=== PATIENT | female | born 1985 | race Caucasian/White ===

== ENCOUNTER 2016-10-05 09:23 | Emergency (ER) | payer MEDICAID, OTHER ==
[~2016-10-05] VITALS: Ht 172.7 cm; Wt 103.4 kg
[~2016-10-05 09:23] MED LIST: IBUP800T23 PO; ORPH100T PO
[2016-10-05 09:26] VITALS: BP 118/79; PULSE 88; RESP 15; TEMP 98.9; O2SAT 100
[2016-10-05] MEDS ORDERED: CLIN1CAP5 PO (09:55)
[2016-10-05] MEDS ORDERED: IBUP-232 PO (09:55)
[2016-10-05] MEDS ORDERED: ULTR50TA5 PO (09:55)
--- NOTE | 2016-10-05 09:55 | PD ---
HPI Chief Complaint: Cold / Flu Symptoms Time Seen by Provider: 09:43 Travel History International Travel<30 days: No Contact w/Intl Traveler<30days: No Traveled to known affect area: No History of Present Illness HPI 31-year-old female complains of toothache, sore throat, coughing congestion. Patient states that the symptoms started several days ago. Patient states the cough is intermittent mildly productive. Patient denies any headache. Patient denies any chest pain or shortness of breath. Patient denies abdominal pain. Patient denies any nausea vomiting diarrhea. Patient denies any fever chills. PFSH Past Medical History Medical History: Denies Significant Hx Diminished Hearing: No Immunizations Current: No Tetanus Vaccination: > 5 Years Influenza Vaccination: No ?: Not LMP: 5 years ago, irregular due to Mirena IUD Past Surgical History Section: Yes (x 3) Gynecologic Surgery: Yes (C-SECT X 3) Social History Alcohol Use: No Tobacco Use: No Substance Use: No Allergies-Medications (Allergen,Severity, Reaction): Coded Allergies: Penicillin (Verified Allergy, Severe, HIVES/DIARRHEA, 10/05/16) Reported Meds & Prescriptions Reported Meds & Active Scripts Active No Active Prescriptions or Reported Medications Review of Systems General / Constitutional: No: Fever Eyes: No: Visual changes HENT: Positive: Sore Throat, No: Headaches Cardiovascular: No: Chest Pain or Discomfort Respiratory: Positive: Cough, No: Shortness of Breath Gastrointestinal: No: Abdominal Pain Genitourinary: No: Dysuria Musculoskeletal: No: Pain Skin: No Rash Neurologic: No: Weakness Psychiatric: No: Depression Endocrine: No: Polydipsia Hematologic/Lymphatic: No: Easy Bruising Physical Exam Narrative GENERAL: Well-nourished, well-developed patient. SKIN: Focused skin assessment warm/dry. HEAD: Normocephalic. EYES: No scleral icterus. No injection or drainage. TM: Clear. Throat: Mild erythematous. Patient has mild soft tissue swelling tenderness right upper gum area. NECK: Supple, trachea midline. No JVD or lymphadenopathy. CARDIOVASCULAR: Regular rate and rhythm without murmurs, gallops, or rubs. RESPIRATORY: Breath sounds equal bilaterally. No accessory muscle use. GASTROINTESTINAL: Abdomen soft, non-tender, nondistended. MUSCULOSKELETAL: No cyanosis, or edema. BACK: Nontender without obvious deformity. No CVA tenderness. Data Data Last Documented VS Vital Signs Date Time Temp Pulse Resp B/P Pulse Ox O2 Delivery O2 Flow Rate FiO2 10/05/16 09:36 16 Room Air 10/05/16 09:26 98.9 88 118/79 100 MDM Medical Decision Making Medical Screen Exam Complete: Yes Emergency Medical Condition: Yes Differential Diagnosis Differential diagnosis including dental pain, dental abscess, angitis, bronchitis, pneumonia. Narrative Course 31-year-old female with right upper gum pain swelling sore throat coughing congestion. Diagnosis Primary Impression: Pharyngitis Qualified Code: J02.9 - Pharyngitis, unspecified etiology Additional Impression: Pain, dental Patient Instructions: General Instructions Additional Instructions: Clindamycin as directed. Take medications as needed for pain. Follow-up with dentist and personal physician. Return if worse. Med/Other Pt SpecificInfo: Prescription(s) given Scripts Tramadol (Ultram)50 Mg Tab50 Mg PO Q6H PRN (PAIN) #20 TAB Ref 0 Prov:Titi Rodríguez MD 10/05/16 Ibuprofen 600 Mg [id number] Mg PO Q8HR PRN (PAIN) #60 TAB Ref 0 Prov:Titi Rodríguez MD 10/05/16 Clindamycin 150 Mg Cap2 Tab PO Q6H #80 CAP Prov:Titi Rodríguez MD 10/05/16 Disposition: 01 DISCHARGE HOME Condition: Stable Titi Rodríguez MD October 05, 2016 09:55
== END 2016-10-05 10:30 | disposition home or self-care (01) ==
LOC: PHEFT 09:23
DX: J02.9 Acute pharyngitis, unspecified (principal); K08.89 Other specified disorders of teeth and supporting structures; R05 Cough
CPT/HCPCS: 99284

== ENCOUNTER 2017-04-25 12:16 | Emergency (ER) | payer MEDICAID ==
[~2017-04-25 12:16] MED LIST changes: +CLIN150C14 PO; +IBUP-232 PO; -IBUP800T23 PO; -ORPH100T PO; +TRAM50 PO
[2017-04-25 12:20] VITALS: BP 145/70; PULSE 82; RESP 18; TEMP 98.1; O2SAT 99
[2017-04-25] MEDS ORDERED: IBUP1TAB7 PO (12:57)
[2017-04-25] MEDS ORDERED: CLIN300C5 PO (12:57)
--- NOTE | 2017-04-25 12:57 | PD ---
HPI Chief Complaint: Oral / Dental Pain or Problem Time Seen by Provider: 12:49 Travel History International Travel<30 days: No Contact w/Intl Traveler<30days: No Traveled to known affect area: No History of Present Illness HPI 32-year-old female here with right upper dental pain 3-4 days. Patient has history of dental abscesses. She has widespread dental decay. No facial swelling. She denies fever or chills. Symptoms severity is mild. No aggravating or alleviating factors. PFSH Past Medical History Medical History: Denies Significant Hx Diminished Hearing: No Immunizations Current: No ?: Not LMP: 5 YEARS AGO, HAS IUD Past Surgical History Surgical History: No Previous Surgery Section: Yes (x 3) Gynecologic Surgery: Yes (C-SECT X 3) Social History Alcohol Use: No Tobacco Use: No Substance Use: No Allergies-Medications (Allergen,Severity, Reaction): Coded Allergies: penicillin G (Verified Allergy, Severe, HIVES/DIARRHEA, 04/25/17) Reported Meds & Prescriptions Reported Meds & Active Scripts Active Ibuprofen 800 Mg Tab 800 Mg PO Q6HR PRN Clindamycin (Clindamycin HCl) 300 Mg Cap 300 Mg PO TID 10 Days Review of Systems Except as stated in HPI: all other systems reviewed are Neg Physical Exam Narrative GENERAL: Alert well-appearing female. SKIN: Warm and dry. HEAD: Normocephalic. EYES: No injection or drainage. Mouth: Right upper premolar decay with surrounding gum erythema NECK: Supple, trachea midline. No lymphadenopathy. CARDIOVASCULAR: Regular rate and rhythm without murmurs, gallops, or rubs. RESPIRATORY: Breath sounds equal bilaterally. No accessory muscle use. Data Data Last Documented VS Vital Signs Date Time Temp Pulse Resp B/P (MAP) Pulse Ox O2 Delivery O2 Flow Rate FiO2 04/25/17 12:20 98.1 82 18 145/70 (95) 99 MDM Medical Decision Making Medical Screen Exam Complete: Yes Emergency Medical Condition: Yes Differential Diagnosis Dental abscess, caries, periodontal disease Narrative Course Patient has widespread dental decay bilateral premolar dental caries with surrounding gum erythema. Patient be put on antibiotics NSAIDs. Diagnosis Primary Impression: Dental infection Referrals: Dentist Scripts Ibuprofen (Ibuprofen) 800 Mg Tab 800 MG PO Q6HR Y for PAIN, #40 TAB 0 Refills Prov: Martha Brown 04/25/17 Clindamycin (Clindamycin) 300 Mg Cap 300 MG PO TID for Infection for 10 Days, CAP 0 Refills Prov: Martha Brown 04/25/17 Disposition: 01 DISCHARGE HOME Condition: Stable Martha Brown Apr 25, 2017 12:57
== END 2017-04-25 13:16 | disposition home or self-care (01) ==
LOC: PHEFT 12:16
DX: K04.7 Periapical abscess without sinus (principal); K02.9 Dental caries, unspecified
CPT/HCPCS: 99283

== ENCOUNTER 2017-05-15 12:14 | Emergency (ER) | payer MEDICAID ==
[~2017-05-15] VITALS: Ht 172.7 cm; Wt 114.1 kg
[~2017-05-15 12:14] MED LIST changes: -CLIN150C14 PO; +CLIN300C5 PO; -IBUP-232 PO; +IBUP1TAB7 PO; -TRAM50 PO
[2017-05-15 12:20] VITALS: BP 127/72; PULSE 98; RESP 16; TEMP 97.9; O2SAT 97
[2017-05-15] MEDS ORDERED: AZIT250T3 PO (13:36)
--- NOTE | 2017-05-15 13:36 | PD ---
HPI Chief Complaint: ENT Complaint Time Seen by Provider: 13:00 Travel History International Travel<30 days: No Contact w/Intl Traveler<30days: No Traveled to known affect area: No History of Present Illness HPI 32-year-old female here with sore throat and fever 2 days. Reports an occasional cough and nasal congestion. Symptom severity is mild. No aggravating or alleviating factors. Her 2 children have similar symptoms. PFSH Past Medical History Medical History: Denies Significant Hx Diminished Hearing: No Immunizations Current: No Tetanus Vaccination: Unknown Influenza Vaccination: No ?: Not Past Surgical History Section: Yes (x 3) Gynecologic Surgery: Yes (C-SECT X 3) Social History Alcohol Use: No Tobacco Use: No Substance Use: No Allergies-Medications (Allergen,Severity, Reaction): Coded Allergies: penicillin G (Verified Allergy, Severe, HIVES/DIARRHEA, 05/15/17) Reported Meds & Prescriptions Reported Meds & Active Scripts Active Ibuprofen 800 Mg Tab 800 Mg PO Q6HR PRN Clindamycin (Clindamycin HCl) 300 Mg Cap 300 Mg PO TID 10 Days Review of Systems Except as stated in HPI: all other systems reviewed are Neg Physical Exam Narrative GENERAL: Alert female well-appearing. SKIN: Warm and dry. HEAD: Normocephalic. EYES: No scleral icterus. No injection or drainage. THROAT: Pharyngeal erythema without tonsillar hypertrophy or exudate. NECK: Supple, trachea midline. No JVD or lymphadenopathy. CARDIOVASCULAR: Regular rate and rhythm without murmurs, gallops, or rubs. RESPIRATORY: Breath sounds equal bilaterally. No accessory muscle use. Data Data Last Documented VS Vital Signs Date Time Temp Pulse Resp B/P (MAP) Pulse Ox O2 Delivery O2 Flow Rate FiO2 05/15/17 12:20 97.9 98 16 127/72 (90) 97 Orders Orders Group A Rapid Strep Screen (05/15/17 13:06) MDM Medical Decision Making Medical Screen Exam Complete: Yes Emergency Medical Condition: Yes Interpretation(s) Rapid strep positive Differential Diagnosis Strep pharyngitis, viral pharyngitis, URI Narrative Course 32-year-old female here with sore throat and fever 2 days. She is nontoxic appearing. Her vital signs are stable. Check screen is positive. Diagnosis Primary Impression: Pharyngitis Qualified Codes: J02.0 - Streptococcal pharyngitis Referrals: Primary Care Physician Departure Forms: Tests/Procedures, Work Release Enter return to work date: May 16, 2017 Scripts Azithromycin (Azithromycin) 250 Mg Tab 250 MG PO DIRECTED for Infection, #6 TAB 0 Refills Take 2 tabs (500 mg) on day 1 then 1 tab daily x 4 days. Prov: Martha Brown 05/15/17 Disposition: 01 DISCHARGE HOME Condition: Stable Martha Brown May 15, 2017 13:36
== END 2017-05-15 13:58 | disposition home or self-care (01) ==
LOC: PHEFT 12:14
DX: J02.0 Streptococcal pharyngitis (principal); R50.9 Fever, unspecified; R05 Cough; R09.81 Nasal congestion; B95.0 Streptococcus, group A, as the cause of diseases classified elsewhere
CPT/HCPCS: 87880; 99283